=== PATIENT | female | born 1985 | race Caucasian/White ===

== ENCOUNTER 2017-05-15 08:14 | Emergency (ER) | payer BC ==
[~2017-05-15] VITALS: Ht 152.4 cm; Wt 77.1 kg
[2017-05-15] MEDS ORDERED: NORCO 5-325 TA1 EACH PO (09:10)
== END 2017-05-15 09:23 | disposition home or self-care (01) ==
LOC: ED 08:14
DX: S89.91XA Unspecified injury of right lower leg, initial encounter (principal); Z88.1 Allergy status to other antibiotic agents; W01.0XXA Fall on same level from slipping, tripping and stumbling without subsequent striking against object, initial encounter
CPT/HCPCS: 73560; 99283

== ENCOUNTER 2018-08-26 10:10 | Inpatient (IN) | payer OTHER ==
[~2018-08-26] VITALS: Ht 152.4 cm; Wt 83.0 kg
--- NOTE | ~2018-08-26 | OR ---
[facility] [address], [place] [address] Draft DATE OF OPERATION: 09/03/2018 SURGEON: Fabiola Acevedo MD HEEL SHAPER: Bryant Maguire MD PREOPERATIVE DIAGNOSIS: Term , previous section, breech presentation. POSTOPERATIVE DIAGNOSES: 1. Term , previous section, breech presentation. 2. Delivered. PROCEDURE PERFORMED: Repeat section with low segment transverse uterine incision. ANESTHESIA: Spinal. ESTIMATED BLOOD LOSS: 500 mL. DRAINS: Whitaker catheter. INDICATIONS AND FINDINGS: The patient is a 33-year-old female, 2, para 1, admitted at 39 and 1/7 weeks for repeat section. The patient has been breech in the office. She was extensively counseled and decision was made to proceed with repeat . At the time of surgery, she was delivered of a little girl from the right sacrum anterior position as a brown breech with Apgars of 7 and 9 and weight of 6 pounds 13 ounces. The uterus, tubes, ovaries, and placenta appeared normal, other than there was a small septum at the upper aspect of the uterus. There was a window in the right broad ligament as well. DESCRIPTION OF PROCEDURE: The patient was prepped and draped in the supine position. The previous Pfannenstiel scar was removed sharply. The incision was extended down through the fascia and the incision extended laterally. The inferior and superior fascial flaps were then created. PATIENT NAME: BLANESANGEETHA MONAE OPERATIVE REPORT DATE OF : 89 REPORT #: [id number] PHYSICIAN: FABIOLA ACEVEDO MD PCP: LY SHANE PA-C REPORT IS CONFIDENTIAL AND NOT TO BE RELEASED WITHOUT AUTHORIZATION [facility] [address], [place] [address] Draft The muscles were bluntly divided and the peritoneum was entered bluntly and the incision extended bluntly. The Yemi retractor was then placed. The incision on the uterus was made just above the peritoneal reflection. The baby was delivered with the above findings and handed off to the pediatric staff in attendance. The placenta was removed manually and the uterus explored with a lap tape assuring no remaining fragments. There did appear to be a small septum at the upper aspect of the uterus in the midline. The uterine edges were then grasped with T clamps. The uterus was closed in 2 layers. The first layer was running locking stitch and second was a vertical imbricating stitch. Additional [id number] were required near the patient's left angle. There was also noted to be a window in the right broad ligament with some bleeding at that angle and layer of suture was placed using the 0 Monocryl as well. The abdomen was then copiously irrigated and inspected and there was no evidence of ongoing bleeding. The retractor was removed and the peritoneum identified. An ACell graft was laid over the lower segment to aid in healing. The peritoneum was then closed in a running suture of 3-0 Vicryl. The muscles were brought together with interrupted sutures of 0 Vicryl. Bleeding points were controlled with cautery and this layer irrigated. Good hemostasis was seen. ACell powder was sprinkled over the muscles to aid in healing. The fascia was then closed from each angle to the midline with a running suture of 0 Vicryl. The subcu layer was then irrigated and bleeding points controlled with cautery. The deep space was closed with interrupted sutures of 3-0 Vicryl. The skin was closed with pedro pablo. All sponge and needle counts were correct. She tolerated the procedure well and was taken to the recovery room in good condition. MD MILLICENT Soriano/NUBIA /[id number] cc: Bryant Maguire MD Copies: BRYANT MAGUIRE MD ~ PATIENT NAME: SANGEETHA ARGUELLES OPERATIVE REPORT DATE OF : 89 REPORT #: [id number] PHYSICIAN: FABIOLA ACEEVDO MD PCP: LY SHANE PA-C REPORT IS CONFIDENTIAL AND NOT TO BE RELEASED WITHOUT AUTHORIZATION
[~2018-08-26 10:10] MED LIST: NORCO 5-325 TA1 EACH PO
--- NOTE | 2018-09-03 12:59 | NUR ---
09/03/18 1259 Sheets,Karin 1228 PT ARRIVED TO PACU ON RA, PT DENIES NAUSEA AND PAIN. VSS. IV INFUSING LR WITH 30 OF PIT. DAD AT BEDSIDE HOLDING BABY. PT RESTING IN BED AND AWAKE WITH NO CONCERNS AT THIS TIME. 1230 PT EDUCATION GIVEN ON FUNDAL CHECKS AND SPINAL. 1254 REPORT TO [facility] RN. PT CONTINUES TO REST IN BED WITH NO CONCERNS. VSS. PUMP TUBING SET UP AND BED PLUGED IN AND CALL LIGHT WITHIN REACH.
--- NOTE | 2018-09-04 07:44 | PR ---
[facility] [address] [facility] [place], [place] [address] Signed PP Progress Notes Datetime Report Generated by DENAE: 09/04/2018 07:43 SUBJECTIVE: [id number] Pain: Within normal limits Nausea/Vomiting: Denies Flatus: Yes Vital Signs: [id number] Vital Signs: Reviewed; Within Normal Limits EXAM: [id number] Cardiovascular: Normal Respiratory: Normal Abdomen/Uterus: Abnormal Lochia: Normal Vulva/Perineum: Not Done Breasts: Not Done CVA Tenderness: Not Done Extremities: Normal Incision: Normal Progress: Normal Exam Comments: Abdomen with active BS. Fundus firm, NT @ U-1. H/H 9.9/30.4, WBC 12.1, plat 178k IMPRESSION/PLAN/PROCEDURES: [id number] Impression: Normal progression Other Plans: ambulate, D/C saini, shower Progress Notes: Doing well. Will increase activity. Signing Physician: Fabiola Acevedo MD Copies: ~ *Electronically Signed* 09/04/18 0743 FABIOLA ACEVEDO MD PATIENT NAME: SANGEETHA ARGUELLES PROGRESS NOTE DATE OF : 89 PHYSICIAN: FABIOLA ACEVEDO MD RPT #: [id number] REPORT IS CONFIDENTIAL AND NOT TO BE RELEASED WITHOUT AUTHORIZATION
--- NOTE | 2018-09-05 07:50 | PR ---
[facility] [address] [facility] [place], [place] [address] Signed PP Progress Notes Datetime Report Generated by CPN: 09/05/2018 07:50 SUBJECTIVE: [id number] Pain: Within normal limits Nausea/Vomiting: Denies Flatus: Yes Vital Signs: [id number] Vital Signs: Reviewed; Within Normal Limits EXAM: [id number] Cardiovascular: Not Done Respiratory: Not Done Abdomen/Uterus: Abnormal Lochia: Normal Vulva/Perineum: Not Done Breasts: Not Done CVA Tenderness: Not Done Extremities: Normal Incision: Normal Progress: Normal Exam Comments: Abdomen with active BS. Fundus firm, NT @ U-1. IMPRESSION/PLAN/PROCEDURES: [id number] Impression: Normal progression Plan: Remove pedro pablo; Discharge Other Plans: ambulate, D/C saini, shower Procedures: None Progress Notes: Doing well. She desires D/C. Signing Physician: Fabiola Acevedo MD Copies: ~ *Electronically Signed* 09/05/18 0750 FABIOLA ACEVEDO MD PATIENT NAME: SANGEETHA ARGUELLES SINTIA PROGRESS NOTE DATE OF : 89 PHYSICIAN: FABIOLA ACEVEDO MD RPT #: [id number] REPORT IS CONFIDENTIAL AND NOT TO BE RELEASED WITHOUT AUTHORIZATION
== END 2018-09-05 12:45 | disposition home or self-care (01) | DRG 788 ==
LOC: FBC 09-03 06:45
PROVIDERS: ADMIT Obstetrics & Gynecology
PROC: 10D00Z1 Extraction of Products of Conception, Low, Open Approach (ICD-10-PCS; principal; 2018-09-03 12:00)
DX: O34.211 Maternal care for low transverse scar from previous cesarean delivery (principal); N85.8 Other specified noninflammatory disorders of uterus; Z3A.39 39 weeks gestation of pregnancy; Z37.0 Single live birth; O32.1XX0 Maternal care for breech presentation, not applicable or unspecified; O99.62 Diseases of the digestive system complicating childbirth; K21.9 Gastro-esophageal reflux disease without esophagitis; O99.214 Obesity complicating childbirth; E66.9 Obesity, unspecified; O99.344 Other mental disorders complicating childbirth; F32.89 Other specified depressive episodes; Z88.0 Allergy status to penicillin; Z79.899 Other long term (current) drug therapy
CPT/HCPCS: 36415; 85027; C1763; J0690; J2210; J2274; J2370; J2405; J2590; J7120